=== PATIENT | male | born 1945 | race Caucasian/White ===

== ENCOUNTER 2024-02-24 17:16 | Inpatient (IN) | payer OTHER, MEDICARE ==
[~2024-02-24] VITALS: Ht 188 cm; Wt 103.8 kg
[2024-02-24 17:45] VITALS: TEMP 98.4
[2024-02-24 18:29] LABS: BASOPHILS % (AUTO) 0.6 % (0-1); EOSINOPHILS % (AUTO) 0.6 % (0-6); HEMATOCRIT 43.4 % (42.0-52.0); HEMOGLOBIN 15.3 g/dl (14.0-17.9); MEAN CORPUSCULAR HEMOGLOBIN 33.7 PG (27.0-31.0); MEAN CORPUSCULAR HGB CONC 35.3 g/dL (33.0-36.5); MEAN CORPUSCULAR VOLUME 95.5 FL (78-98); MEAN PLATELET VOLUME 7.1 FL (7.4-10.4); MONOCYTES # (AUTO) 0.3 X10'3 (0-0.9); MONOCYTES % (AUTO) 4.3 % (2-12); NEUTROPHILS # (AUTO) 5.1 X10'3 (1.8-7.7); NEUTROPHILS % (AUTO) 79.5 % (42-75); PLATELET COUNT 188 X10'3 (140-440); RED BLOOD COUNT 4.55 X10'6 (4.70-6.10); RED CELL DISTRIBUTION WIDTH 13.9 % (11.5-14.5); WHITE BLOOD COUNT 6.4 X10'3 (4.5-11.0)
[2024-02-24 18:44] LABS: ALANINE AMINOTRANSFERASE 30 U/L (12-78); ALBUMIN 4.2 G/DL (3.4-5.0); ALBUMIN/GLOBULIN RATIO 1.2 (1.1-1.5); ALKALINE PHOSPHATASE 76 IU/L (46-116); ANION GAP 11 (8-16); APTT 26 SECONDS (22-32); ASPARTATE AMINO TRANSFERASE 22 U/L (10-37); BILIRUBIN,DIRECT 0.2 MG/DL (0-0.3); BILIRUBIN,TOTAL 0.8 MG/DL (0.1-1.0); BLOOD UREA NITROGEN 19 MG/DL (7-18); BUN/CREATININE RATIO 14.5 (10.0-20.0); CHLORIDE 107 MMOL/L (99-107); CREATININE 1.31 MG/DL (0.60-1.10); GLUCOSE 132 MG/DL (70-104); MAGNESIUM 1.9 MG/DL (1.5-2.4); POTASSIUM 3.8 MMOL/L (3.5-5.1); PROTHROMBIN TIME 11.1 SECONDS (9.0-12.0); SODIUM 143 MMOL/L (135-145); TOTAL CARBON DIOXIDE 24.7 MMOL/L (24-32); TOTAL PROTEIN 7.7 G/DL (6.4-8.2); eCRCL 53 ML/MIN; eGFR 53 ML/MIN
[2024-02-24] MEDS ORDERED: AMLO5TAB5 PO (18:50)
[2024-02-24] MEDS ORDERED: ROSU5TAB PO (18:50)
[2024-02-24] MEDS ORDERED: ALB0.5UD IH (18:50)
[2024-02-24] MEDS ORDERED: FLO0.4C PO (18:50)
[2024-02-24] MEDS ORDERED: BUDE10.2 INH (18:50)
[2024-02-24] MEDS ORDERED: FINA5TAB38 PO (18:50)
[2024-02-24] MEDS ORDERED: iohexol 350MG/ML 100ml bottle IV ONE (18:52)
[2024-02-24 20:17] LABS: BILIRUBIN,URINE NEGATIVE (Neg); CLARITY,URINE CLEAR (Clear); COLOR,URINE YELLOW (Yellow); GLUCOSE, URINE NEGATIVE (Neg); KETONES,URINE NEGATIVE (Neg); LEUKOCYTE ESTERASE ,URINE NEGATIVE (Neg); NITRITES, URINE NEGATIVE (Neg); OCCULT BLOOD,URINE NEGATIVE (Neg); PROTEIN,URINE NEGATIVE (Neg); UROBILINOGEN,URINE 0.2 E.U/dL (0.2-1.0)
[2024-02-24 20:20] LABS: UA COLLECTION TYPE CLN CATCH MIDSTREAM
[2024-02-24 20:39] LABS: URINE AMPHETAMINE SCREEN NEGATIVE (Neg); URINE BARBITUATE SCREEN NEGATIVE (Neg); URINE BENZODIAZEPINES SCREEN NEGATIVE (Neg); URINE CANNABINOID SCREEN NEGATIVE (Neg); URINE COCAINE SCREEN NEGATIVE (Neg); URINE METHADONE SCREEN NEGATIVE (Neg); URINE OPIATE SCREEN NEGATIVE (Neg); URINE PHENCYCLIDINE SCREEN NEGATIVE (Neg)
[2024-02-24] MEDS ORDERED: acetaminophen 325mg tablet PO PRN (21:30)
[2024-02-24] MEDS ORDERED: magnesium 4gm in 100ml NS 100 ML IV PRN (21:30)
[2024-02-24] MEDS ORDERED: ondansetron/PF 4mg/2ml inj IV PRN (21:30)
[2024-02-24] MEDS ORDERED: mag hydrox/Alum hydrox/simeth 30ml oral suspension PO PRN (21:30)
[2024-02-24] MEDS ORDERED: potassium Cl 40MEQ/1/2NS 520ml 520 ML IV PRN (21:30)
[2024-02-24] MEDS ORDERED: magnesium hydroxide 30ml (MOM) UD suspension PO PRN (21:30)
[2024-02-24] MEDS ORDERED: morphine 2 MG/ML inj. syringe IV PRN (21:30)
[2024-02-24] MEDS ORDERED: magnesium Cl slow-release 64mg tablet PO PRN (21:30)
[2024-02-24] MEDS ORDERED: magnesium 2GM in 50ml NS 50 ML IV PRN (21:30)
[2024-02-24] MEDS ORDERED: potassium Cl 20 mEq SR tablet PO PRN ×2 (21:30)
[2024-02-24 22:06] LABS: PRO BRAIN NATRIURETIC PEPTIDE 38 PG/ML (0-450)
[2024-02-24 22:08] LABS: HEMOGLOBIN A1C 5.3 % (4.5-6.2)
[2024-02-24 22:11] VITALS: PULSE 72; RESP 14; O2SAT 96
[2024-02-24] MEDS: zolpidem 5mg tablet PO ONE (22:18)
[2024-02-24] MEDS: tamsulosin 0.4mg capsule PO SCH (22:18)
[2024-02-24] MEDS: clopidogrel 75mg tablet PO SCH (22:18)
[2024-02-24] MEDS: aspirin 81mg, enteric-coated 1 TAB TABLET.DR PO SCH (22:18)
[2024-02-24] MEDS: normal saline 1000ml 1,000 ML IV SCH (23:07)
[2024-02-24 23:15] VITALS: PULSE 73; RESP 16; O2SAT 95
[2024-02-25 03:58] VITALS: PULSE 74; RESP 16; O2SAT 96
[2024-02-25] MEDS: pantoprazole 40 MG vial IV SCH (07:49)
[2024-02-25] MEDS: heparin, porcine 5000 units/ml vial SQ SCH (07:50)
[2024-02-25] MEDS: docusate sod 100mg capsule PO SCH (07:50)
[2024-02-25] MEDS ORDERED: K and/or MAG REPLACEMENT MC SCH (08:00)
[2024-02-25 09:14] LABS: BASOPHILS % (AUTO) 0.7 % (0-1); EOSINOPHILS # (AUTO) 0.1 X10'3 (0-0.9); EOSINOPHILS % (AUTO) 1.4 % (0-6); HEMOGLOBIN 15.7 g/dl (14.0-17.9); LYMPHOCYTES # (AUTO) 0.9 X10'3 (1.1-4.8); LYMPHOCYTES % (AUTO) 21.3 % (21-51); MEAN CORPUSCULAR HEMOGLOBIN 34.3 PG (27.0-31.0); MEAN CORPUSCULAR HGB CONC 35.6 g/dL (33.0-36.5); MEAN CORPUSCULAR VOLUME 96.3 FL (78-98); MEAN PLATELET VOLUME 7.5 FL (7.4-10.4); MONOCYTES # (AUTO) 0.3 X10'3 (0-0.9); MONOCYTES % (AUTO) 7.1 % (2-12); NEUTROPHILS # (AUTO) 3.1 X10'3 (1.8-7.7); NEUTROPHILS % (AUTO) 69.5 % (42-75); PLATELET COUNT 169 X10'3 (140-440); RED BLOOD COUNT 4.57 X10'6 (4.70-6.10); RED CELL DISTRIBUTION WIDTH 13.8 % (11.5-14.5); WHITE BLOOD COUNT 4.4 X10'3 (4.5-11.0)
[2024-02-25 09:41] LABS: ALANINE AMINOTRANSFERASE 20 U/L (12-78); ALBUMIN 3.9 G/DL (3.4-5.0); ALBUMIN/GLOBULIN RATIO 1.2 (1.1-1.5); ALKALINE PHOSPHATASE 77 IU/L (46-116); ANION GAP 12 (8-16); ASPARTATE AMINO TRANSFERASE 19 U/L (10-37); BLOOD UREA NITROGEN 15 MG/DL (7-18); BUN/CREATININE RATIO 12.7 (10.0-20.0); CALCIUM 9.5 MG/DL (8.5-10.1); CHLORIDE 107 MMOL/L (99-107); CHOL/HDL RATIO 3.1 (0.00-4.99); CHOLESTEROL 125 MG/DL (0-200); CREATININE 1.18 MG/DL (0.60-1.10); GLUCOSE 108 MG/DL (70-104); HDL CHOLESTEROL 40 MG/DL (35-60); LDL CHOLESTEROL 72 MG/DL (50-100); MAGNESIUM 1.9 MG/DL (1.5-2.4); SODIUM 142 MMOL/L (135-145); TOTAL CARBON DIOXIDE 23.4 MMOL/L (24-32); TOTAL PROTEIN 7.2 G/DL (6.4-8.2); TRIGLYCERIDES 83 MG/DL (20-135); eCRCL 59 ML/MIN; eGFR 60 ML/MIN
[2024-02-25] MEDS ORDERED: ASPI-1071 PO (11:07)
[2024-02-25 11:46] VITALS: BP 157/68; PULSE 66; RESP 18; O2SAT 98
== END 2024-02-25 11:40 | disposition home or self-care (01) | DRG 683 ==
LOC: ER 17:17 → ED HOLD 21:37
PROVIDERS: ADMIT Surgery; ATTEND Internal Medicine
PROC: B3251ZZ Computerized Tomography (CT Scan) of Bilateral Common Carotid Arteries using Low Osmolar Contrast (ICD-10-PCS; principal; 2024-02-24)
PROC: B32G1ZZ Computerized Tomography (CT Scan) of Bilateral Vertebral Arteries using Low Osmolar Contrast (ICD-10-PCS; 2024-02-24)
PROC: B32R1ZZ Computerized Tomography (CT Scan) of Intracranial Arteries using Low Osmolar Contrast (ICD-10-PCS; 2024-02-24)
PROC: B3281ZZ Computerized Tomography (CT Scan) of Bilateral Internal Carotid Arteries using Low Osmolar Contrast (ICD-10-PCS; 2024-02-24)
DX: N17.0 Acute kidney failure with tubular necrosis (principal); G45.9 Transient cerebral ischemic attack, unspecified; G47.33 Obstructive sleep apnea (adult) (pediatric); E78.5 Hyperlipidemia, unspecified; I10 Essential (primary) hypertension; N40.0 Benign prostatic hyperplasia without lower urinary tract symptoms; Z79.899 Other long term (current) drug therapy
CPT/HCPCS: 36415; 70496; 70498; 70551; 71045; 74176; 80048; 80053; 80061; 80076; 80305; 81003; 82948; 83036; 83735; 83880; 85025; 85610; 85730; 86885; 86900; 86901; 93005; 93306; 94660; 94760; 99291; C9113; G0378; J1644; J3490; J7030; Q9967